=== PATIENT | male | born 1940 | race Caucasian/White ===

== ENCOUNTER 2024-09-13 10:40 | Outpatient (CLI) | payer BC, OTHER, SELFPAY ==
[2024-09-13 11:36] LABS: Hematocrit 45.4 % (40-54); Hemoglobin 14.9 g/dL (13.0-16.5); Mean Corp Hgb Conc 32.8 g/dL (32-36); Mean Corpuscular Hgb 31.2 pg (27.0-32.0); Mean Corpuscular Volume 95.2 fL (80-94); Mean Platelet Vol. 9.8 fl (6.2-12.0); Platelet Count 161 K/mm3 (150-450); RBC Distribution Width CV 14.6 % (11.6-14.6); RBC Distribution Width SD 50.6 fl (35.1-43.9); Red Blood Count 4.77 M/mm3 (4.6-6.2); White Blood Count 10.9 K/mm3 (4.4-11.0)
[2024-09-13 11:57] LABS: Anion Gap 1 (5-15); BUN 47 mg/dL (7-18); BUN/Creat Ratio 29.4 RATIO (10-20); Calcium,Total 10.9 mg/dL (8.5-10.1); Chloride 104 mmol/L (98-107); EST Glomerular Filtration Rate 44 mL/min (>60); Est Glom Filt Rate - Afr Amer 53 mL/min (>60); Glucose 103 mg/dL (74-106); Potassium 4.8 mmol/L (3.5-5.1); Sodium Level 137 mmol/L (136-145)
== END 2024-09-13 23:59 | disposition home or self-care (01) ==
LOC: LAB 11:00
PROVIDERS: PCP Family Medicine; Referring Provider Otolaryngology; Visit Provider Otolaryngology
DX: Z01.812 Encounter for preprocedural laboratory examination (principal)
CPT/HCPCS: 36415; 80048; 85027

== ENCOUNTER → 2024-09-16 | Outpatient (CLI) | payer MEDICARE, OTHER, SELFPAY ==
--- NOTE | 2024-09-16 13:19 | EKG12_ITS ---
Test Reason : PREOP Blood Pressure : / mmHG Vent. Rate : 069 BPM Atrial Rate : 069 BPM P-R Int : 136 ms QRS Dur : 080 ms QT Int : 366 ms P-R-T Axes : 084 071 092 degrees QTc Int : 392 ms Normal sinus rhythm ST abnormality, possible digitalis effect Abnormal ECG When compared with ECG of 24-APR-2000 09:33, ST no longer elevated in Anterior leads Nonspecific T wave abnormality now evident in Lateral leads Confirmed by KAVEH ARIZMENDI, THAO ([id number]), editorial project manager CARON DEWEY ([id number]) on 09/17/2024 2:12:02 PM Referred By: Eusebio Quinteros Confirmed By:THAO LINN MD
== END | disposition home or self-care (01) ==
PROVIDERS: PCP Family Medicine; Referring Provider Otolaryngology; Visit Provider Otolaryngology
DX: Z01.810 Encounter for preprocedural cardiovascular examination (principal)
CPT/HCPCS: 93005

== ENCOUNTER 2024-09-29 10:55 | Day surgery (SDC) | payer MEDICARE, SELFPAY ==
[2024-09-29] VITALS (8 sets, daily range): BP systolic 99–113; BP diastolic 44–83; PULSE 61–84; RESP 16–18; TEMP 36.1–36.7; O2SAT 93–100; BMI 21.8
[2024-09-29] MEDS: Lactated Ringers 1,000 ML 15 ML IV (11:40)
--- NOTE | 2024-09-29 11:57 | PRE.ANES_ITS ---
ASA Classification* ASA Classification ASA Classification: 4 Assessment & Plan Anesthesia* Anesthesia Assessment Anesthesia Assessment: Discussed sedation and/or anesthesia options, risks, benefits, and alternatives with patient/parents/legal guardian/POA. Questions invited. The patient/parents/legal guardian/POA seems to understand and agrees to proceed with anesthesia plan. Reviewed the physical assessment, medical history, allergy history and patient home medications list prior to surgery/procedure/anesthetic and documented any changes. Performed airway and anesthesia risk assessments. Anesthesia Type Anesthesia Type: General (Mask versus LMA.) History Source History Obtained from:: Patient and Chart Anesthesia Focused Assessment* Temperature: 97.2 F Pulse Rate: 84 Blood Pressure: 113/52 Respiratory Rate: 18 Pulse Ox: 100 Oxygen Delivery Method: Room Air Airway Assessment Mouth opens: 1 cm Mallampati Score: IV Teeth Condition: Partial (Upper and lower partials are out.) Neck Range of motion (ROM): Limited ROM (Somewhat decreased extension) Focused Labs Anesthesia Preop lab: CBC WBC 10.9 K/mm3 (4.4-11.0) 09/13/24 11:05 RBC 4.77 M/mm3 (4.6-6.2) 09/13/24 11:05 Hgb 14.9 g/dL (13.0-16.5) 09/13/24 11:05 Hct 45.4 % (40-54) 09/13/24 11:05 Plt Count 161 K/mm3 (150-450) 09/13/24 11:05 CHEMISTRY Potassium 4.8 mmol/L (3.5-5.1) 09/13/24 11:05 Sodium 137 mmol/L (136-145) 09/13/24 11:05 BUN 47 mg/dL (7-18) H 09/13/24 11:05 Creatinine 1.60 mg/dL (0.70-1.30) H 09/13/24 11:05 Glucose 103 mg/dL (74-106) 09/13/24 11:05 COAG Pre-Assessment Diagnosis/Proposed Procedure Planned Operative Procedure(s): RIGHT MYRINGOTOMY TUBE Anesthesia History Anesthesia History - 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 When Was Last Pacemaker Check QUESTION #4 FULL TEXT: You/Your Family Experience fever (hyperthermia) with Anesthesia Last Oral Intake Last Oral intake: Last Oral Intake NPO since 19:30 09/29/24 11:40 Meds taken in AM with sips of No 09/29/24 11:40 water? Meds patient instructed to take am of surgery PONV PONV - engraver ornamental design: PONV - engraver ornamental design Female No 09/25/24 11:44 HX of Motion Sickness No 09/25/24 11:44 HX of N/V After Surgery No 09/25/24 11:44 Non-Smoker Yes 09/25/24 11:44 Duration of Surgery greater No 09/25/24 11:44 than 60 minutes Number of Risk Factors 1 09/25/24 11:44 PONV Score Low Risk 09/25/24 11:44 Height & Weight Height & Weight: Anesthesia: Height & Weight Height 5 ft 9 in 09/29/24 11:40 Weight: 67 kg 09/29/24 11:40 Body Mass Index (BMI) 21.8 09/29/24 11:40 Respiratory Assessment Respiratory Assessment - engraver ornamental design: Respiratory Tract Infection Hx - engraver ornamental design Hx Respiratory Tract Infection No 09/25/24 11:44 STOP Sleep Apnea STOP Sleep Apnea - engraver ornamental design: STOP Sleep Apnea - engraver ornamental design Hx Hypertension Yes: CONTROLLED WITH MED 09/25/24 11:44 Hx Sleep Apnea No 09/25/24 11:44 CPAP BIPAP Do you snore loudly (louder No 09/25/24 11:44 than talking or can be heard Do you often feel tired/ Yes 09/25/24 11:44 fatigued/ sleepy during daytime? Has anyone observed you stop No 09/25/24 11:44 breathing during sleep? STOP Results Positive 09/25/24 11:44 QUESTION #5 FULL TEXT : Do you snore loudly (louder than talking or can be heard through closed doors)? 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 Specify any problems Hx of Preganancy in last 3 N/A 09/25/24 11:44 Months Nurse Filling Out Transfusion DSCHRIBER 09/25/24 11:44 & Questions: Date: 09/25/24 09/25/24 11:44 Time: 11:46 09/25/24 11:44 Patient unable to answer at this time (ie. confused, unrespo /Reproduction History /Reproductive History - engraver ornamental design: /Reproductive Hx- engraver ornamental design Hx Now No 09/25/24 11:44 Gestational Age (in weeks): EDC: Hx Hx Para Hx Section SAB No 09/25/24 11:44 Active Medications Active Medications: Current Medications Generic Name Dose Route Start Last Admin Trade Name Freq PRN Reason Stop Dose Admin Lactated Ringer's 1,000 mls @ 15 mls/hr 09/29/24 11:15 09/29/24 11:40 IV 10/05/24 00:34 15 mls/hr .Q48H VICKY Administration Protocol PFSH Medical History Loss of hearing Wears glasses Wears partial dentures History of steroid therapy Ambulates with cane Prostate disease History of renal disease Low iron DVT (deep venous thrombosis) Easy bruising Back pain Syncope History of hiatal hernia History of GI bleed Dietary restriction Gastric reflux Former smoker Lung cancer Leg cramps History of stress test Cardiology follow-up encounter Hypertension History of edema History of heart attack Home Medications ?Medication ?Instructions ?Recorded ?Last Taken ?Type acyclovir 200 mg capsule 200 mg PO BID 09/25/24 Unknown History alpha lipoic acid 200 mg capsule 200 mg PO DAILY 09/25/24 Unknown History aspirin 81 mg tablet,delayed 81 mg PO DAILY 09/25/24 09/14/24 History release (Adult Aspirin Regimen) bicalutamide 50 mg tablet 50 mg PO QHS 09/25/24 Unknown History bumetanide 0.5 mg tablet 0.5 mg PO DAILY 09/25/24 Unknown History calcium 600 mg capsule 600 mg PO DAILY 09/25/24 Unknown History cholecalciferol (vitamin D3) 50 50 mcg PO DAILY 09/25/24 Unknown History mcg (2,000 unit) capsule (Vitamin D3) gabapentin 300 mg capsule 300 mg PO TID 09/25/24 Unknown History ipratropium bromide 42 mcg (0.06 2 spray intranasal BID 09/25/24 Unknown History %) nasal spray leuprolide 3.75 mg intramuscular 3.75 mg IM QMONTH 09/25/24 09/09/24 History syringe kit (Lupron Depot) methadone 5 mg tablet 5 mg PO Q12H 09/25/24 Unknown History metoprolol tartrate 25 mg tablet 25 mg PO BID 09/25/24 Unknown History nystatin 100,000 unit/mL oral 5 ml PO MOWEFR 09/25/24 Unknown History suspension pantoprazole 40 mg tablet,delayed 40 mg PO DAILY 09/25/24 Unknown History release polysaccharide iron complex 150 mg 150 mg PO DAILY 09/25/24 Unknown History iron capsule (Ferrex) prednisone 20 mg tablet 40 mg PO DAILY 09/25/24 Unknown History selenium 200 mcg tablet 200 mcg PO QHS 09/25/24 Unknown History sulfamethoxazole 800 1 tab PO MOWEFR 09/25/24 Unknown History mg-trimethoprim 160 mg tablet tamsulosin 0.4 mg capsule 0.4 mg PO QHS 09/25/24 Unknown History vit I87-[id number] factor-folic 1 tab PO DAILY 09/25/24 Unknown History acid cmb#2 500 mcg-20 mg-800 mcg tablet (Intrinsi Q92-Owldgj) Allergy/AdvReac Type Severity Reaction Status Date / Time [id number] Reductase AdvReac Intermediate Other Verified 09/29/24 11:29 Inhibitor Surgical History History of cardiac catheterization History of esophagogastroduodenoscopy (EGD) Hx of colonoscopy Hx of parotidectomy History of coronary artery stent placement Hx of appendectomy Hx of heart bypass surgery Social History Smoking Status: Former smoker Review of Systems (Anesthesia) ROS Narrative System reviewed and no additional complaints, except as documented. Physical Exam HEENT HEENT Narrative: Patient has left facial droop secondary to parotid surgery September of last year 2022.
--- NOTE | 2024-09-29 13:03 | PCM.DC.SUM ---
Providers Primary Care Physician: Dr. Korey Blanco MD Reason For Visit: Myringotomy,Tubes Medications at Discharge Home Medications acyclovir 200 mg capsule 200 mg PO BID 09/25/24 alpha lipoic acid 200 mg capsule 200 mg PO DAILY 09/25/24 aspirin 81 mg tablet,delayed release (Adult Aspirin Regimen) 81 mg PO DAILY 09/25/24 bicalutamide 50 mg tablet 50 mg PO QHS 09/25/24 bumetanide 0.5 mg tablet 0.5 mg PO DAILY 09/25/24 calcium 600 mg capsule 600 mg PO DAILY 09/25/24 cholecalciferol (vitamin D3) 50 mcg (2,000 unit) capsule (Vitamin D3) 50 mcg PO DAILY 09/25/24 gabapentin 300 mg capsule 300 mg PO TID 09/25/24 ipratropium bromide 42 mcg (0.06 %) nasal spray 2 spray intranasal BID 09/25/24 leuprolide 3.75 mg intramuscular syringe kit (Lupron Depot) 3.75 mg IM QMONTH 09/25/24 methadone 5 mg tablet 5 mg PO Q12H 09/25/24 metoprolol tartrate 25 mg tablet 25 mg PO BID 09/25/24 nystatin 100,000 unit/mL oral suspension 5 ml PO MOWEFR 09/25/24 pantoprazole 40 mg tablet,delayed release 40 mg PO DAILY 09/25/24 polysaccharide iron complex 150 mg iron capsule (Ferrex) 150 mg PO DAILY 09/25/24 prednisone 20 mg tablet 40 mg PO DAILY 09/25/24 selenium 200 mcg tablet 200 mcg PO QHS 09/25/24 sulfamethoxazole 800 mg-trimethoprim 160 mg tablet 1 tab PO MOWEFR 09/25/24 tamsulosin 0.4 mg capsule 0.4 mg PO QHS 09/25/24 vit M72-[id number] factor-folic acid cmb#2 500 mcg-20 mg-800 mcg tablet (Intrinsi L90-Ulghbu) 1 tab PO DAILY 09/25/24 Weight / BMI Weight Weight: 67 kg Body Mass Index (BMI) 21.8 D/C Instructions Discharge Diet: No restrictions and Soft diet Discharge Activity: Return to Normal Activity Additional Instructions: ear drops...5 drops each ear twice a day for 2 days (3 doses) Please Follow Up With: Eusebio Quinteros MD When: 2-3 weeks Meaningful Use Info Meaningful Use Meaningful Use Diagnoses (Choose all that apply): None applicable Ischemic Stroke Statin Dosing Therapy Reference: STATIN DOSE THERAPY REFERENCE: * Patients > 75 years receive moderate or high dose statin therapy. * Patients 75 years or YOUNGER should receive HIGH intensity statin dose unless contraindicated. You will be required to document reason for non-treatment if statin daily dose does not meet guidelines. HIGH DOSE STATIN THERAPY DAILY Atorvastatin > than or = to 40 mg Rosuvastatin > than or = to 20 mg Amlodipine + Atorvastatin > than or = to 2.5/40 mg Ezetimibe + Simvastatin 10/80 mg Simvastatin 80mg Discharge Plan Admission Attending Provider: Eusebio Quinteros Primary Care Provider: Korey Blanco Instructions Print Language: Scottish Discharge Orders/Prescriptions Prescriptions: No Action ipratropium bromide 42 mcg (0.06 %) spray,non-aerosol 2 spray INTRANASAL BID nystatin 100,000 unit/mL suspension 5 ml PO MOWEFR gabapentin 300 mg capsule 300 mg PO TID tamsulosin 0.4 mg capsule 0.4 mg PO QHS selenium 200 mcg tablet 200 mcg PO QHS prednisone 20 mg tablet 40 mg PO DAILY methadone 5 mg tablet 5 mg PO Q12H calcium 600 mg capsule 600 mg PO DAILY alpha lipoic acid 200 mg capsule 200 mg PO DAILY pantoprazole 40 mg tablet,delayed release (DR/EC) 40 mg PO DAILY metoprolol tartrate 25 mg tablet 25 mg PO BID bicalutamide 50 mg tablet 50 mg PO QHS aspirin [Adult Aspirin Regimen] 81 mg tablet,delayed release (DR/EC) 81 mg PO DAILY bumetanide 0.5 mg tablet 0.5 mg PO DAILY sulfamethoxazole-trimethoprim 800-160 mg tablet 1 tab PO MOWEFR acyclovir 200 mg capsule 200 mg PO BID cholecalciferol (vitamin D3) [Vitamin D3] 50 mcg (2,000 unit) capsule 50 mcg PO DAILY Intrinsi Z55-Oeygat 500-20-800 mcg-mg-mcg tablet 1 tab PO DAILY polysaccharide iron complex [Ferrex 150] 150 mg iron capsule 150 mg PO DAILY Lupron Depot 3.75 mg syringe kit 3.75 mg IM QMONTH Referrals / Follow Up: Korey Blanco MD [Primary Care Provider] - Disposition Disposition (needs filled in before D/C Order can be placed): Home, Self Care
--- NOTE | 2024-09-29 13:05 | OP.PCM_ITS ---
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 The patient was placed in the supine position on the operating room table. The patient was given sufficient general anesthesia. The operating microscope was used throughout the entire case. A speculum was inserted into the patient's right ear. Cerumen was removed using a curette. An incision was placed in the anterior inferior quadrant of the tympanic membrane. Fluid was suctioned from the middle ear space using #5 suction. A collar button tube was placed without difficulty. Antibiotic drops were instilled into the patient's ear. The patient was then awoken. He was brought to the recovery room in stable condition. Blood loss none, replacement none. sponge, needle and instrument counts correct at the end of the procedure. Surgical Findings: serous effusion Ear Muff Assembler second hand: No Complications Complications: No
[2024-09-29] MEDS: Ciprofloxacin 0.3% 2.5ml Bottle 1 DRP (13:14)
--- NOTE | 2024-09-29 13:26 | PCM.POST.ANE ---
Anesthesia: Postop Eval I Current Vital Signs Temperature: 98.1 F Pulse Rate: 61 Blood Pressure: 106/44 Respiratory Rate: 18 Pulse Ox: 97 Assessment Airway patent: Yes Spontaneous unlabored respirations: Yes nausea: No Vomiting: No Anesthesia Complication: No Fluid Hydration Crystalloid volume administer (ml): 1,000 Total IV fluid infused: 1,000 Progress Note Anesthesia document: Postop Eval 1 completed: Yes
--- NOTE | 2024-09-29 15:27 | POSTOPAN2_ITS ---
Anesthesia Postop Eval I Sum Postop Eval Completion status Anesthesia document: Postop Eval 1 completed: Yes Anesthesia Postop Eval I Summary Anesthesia Postop Eval I Summary: Anesthesia Postop Eval I: Assessment Summary Airway patent Yes 09/29/24 13:26 ELECTRICIAN HELPER AUTOMOTIVE.CSIR Spontaneous unlabored Yes 09/29/24 13:26 ELECTRICIAN HELPER AUTOMOTIVE.CSIR respirations Mental status nausea No 09/29/24 13:26 ELECTRICIAN HELPER AUTOMOTIVE.CSIR Vomiting No 09/29/24 13:26 ELECTRICIAN HELPER AUTOMOTIVE.CSIR Anesthesia Postop Eval I: Fluid Summary Crystalloid volume administer 1,000 09/29/24 13:26 ELECTRICIAN HELPER AUTOMOTIVE.CSIR (ml) Colloids volume administered ( ml) Blood Product volume administered (ml) Total IV fluid infused 1,000 09/29/24 13:26 ELECTRICIAN HELPER AUTOMOTIVE.CSIR Anesthesia Postop Eval I: Summary Notes Anesthesia Complication No 09/29/24 13:26 ELECTRICIAN HELPER AUTOMOTIVE.CSIR Anesthesia Complication Comment: Post-operative progress note Anesthesia: Postop Eval II Evaluation Mental status: Awake and Calm Pain Level: 1 nausea: No Vomiting: No Complications Anesthesia Complication: No
--- NOTE | 2024-09-29 15:27 | PCM.POSTANE2 ---
Anesthesia Postop Eval I Sum Postop Eval Completion status Anesthesia document: Postop Eval 1 completed: Yes Anesthesia Postop Eval I Summary Anesthesia Postop Eval I Summary: Anesthesia Postop Eval I: Assessment Summary Airway patent Yes 09/29/24 13:26 EMPLOYMENT PROGRAMS ANALYST.CSIR Spontaneous unlabored Yes 09/29/24 13:26 EMPLOYMENT PROGRAMS ANALYST.CSIR respirations Mental status nausea No 09/29/24 13:26 EMPLOYMENT PROGRAMS ANALYST.CSIR Vomiting No 09/29/24 13:26 EMPLOYMENT PROGRAMS ANALYST.CSIR Anesthesia Postop Eval I: Fluid Summary Crystalloid volume administer 1,000 09/29/24 13:26 EMPLOYMENT PROGRAMS ANALYST.CSIR (ml) Colloids volume administered ( ml) Blood Product volume administered (ml) Total IV fluid infused 1,000 09/29/24 13:26 EMPLOYMENT PROGRAMS ANALYST.CSIR Anesthesia Postop Eval I: Summary Notes Anesthesia Complication No 09/29/24 13:26 EMPLOYMENT PROGRAMS ANALYST.CSIR Anesthesia Complication Comment: Post-operative progress note Anesthesia: Postop Eval II Evaluation Mental status: Awake and Calm Pain Level: 1 nausea: No Vomiting: No Complications Anesthesia Complication: No
== END 2024-09-29 15:02 | disposition home or self-care (01) ==
LOC: SDC 11:02 → AC 11:03
PROVIDERS: PCP Family Medicine; Referring Provider Otolaryngology; Visit Provider Otolaryngology
PROC: (CPT 69421; principal; 2024-09-29 12:05)
DX: H65.21 Chronic serous otitis media, right ear (principal); C07 Malignant neoplasm of parotid gland; N18.30 Chronic kidney disease, stage 3 unspecified; Z86.711 Personal history of pulmonary embolism; K21.9 Gastro-esophageal reflux disease without esophagitis; I25.2 Old myocardial infarction; N40.0 Benign prostatic hyperplasia without lower urinary tract symptoms; Z95.1 Presence of aortocoronary bypass graft; Z90.49 Acquired absence of other specified parts of digestive tract; Z95.5 Presence of coronary angioplasty implant and graft; Z87.891 Personal history of nicotine dependence; I25.10 Atherosclerotic heart disease of native coronary artery without angina pectoris; I12.9 Hypertensive chronic kidney disease with stage 1 through stage 4 chronic kidney disease, or unspecified chronic kidney disease; H90.6 Mixed conductive and sensorineural hearing loss, bilateral; B37.0 Candidal stomatitis
CPT/HCPCS: 69421; J7120; J2405

== ENCOUNTER 2024-10-20 12:35 | Observation (INO) | payer MEDICARE, SELFPAY ==
[2024-10-20 12:36] VITALS: BP 134/64; PULSE 74; RESP 16; TEMP 36.1; O2SAT 97
[2024-10-20 12:39] VITALS: BMI 20.8
--- NOTE | 2024-10-20 13:42 | EKG12_ITS ---
Test Reason : Blood Pressure : */* mmHG Vent. Rate : 61 BPM Atrial Rate : 61 BPM P-R Int : 118 ms QRS Dur : 82 ms QT Int : 424 ms P-R-T Axes : 31 56 86 degrees QTcB Int : 426 ms Normal sinus rhythm ST & & T wave abnormality Baseline artifact Abnormal ECG Confirmed by Ashutosh Beckford ([id number]), editorial project manager LILIAN CHU ([id number]) on 10/21/2024 10:43:32 AM Referred By: Carmel Berumen Confirmed By: Ashutosh Beckford
[2024-10-20 13:57] LABS: Absolute Lymphocyte Count 0.11 X10^3/uL (0.83-4.51); Absolute Neutrophil Count 8.9 X10^3/uL (2.0-7.7); Basophil# 0.06 X10^3/uL; Basophil% 0.6 % (0-1); Hemoglobin 13.2 g/dL (13.0-16.5); Lymphocyte # 0.11 X10^3/ul (0.83-4.51); Lymphocyte % 1.1 % (19-41); Mean Corp Hgb Conc 33.8 g/dL (32-36); Mean Corpuscular Hgb 32.8 pg (27.0-32.0); Mean Corpuscular Volume 96.8 fL (80-94); Mean Platelet Vol. 9.4 fl (6.2-12.0); Monocyte# 0.49 X10^3/uL; NRBC Flagged by Analyzer 0 % (0-5); Neutrophil # 8.88 X10^3/uL (2.7-7.7); Neutrophil % 90.6 % (47-70); POSITIVE DIFFERENTIAL YES; Platelet Count 157 K/mm3 (150-450); RBC Distribution Width CV 16.1 % (11.6-14.6); RBC Distribution Width SD 57.9 fl (35.1-43.9); Red Blood Count 4.03 M/mm3 (4.6-6.2); White Blood Count 9.8 K/mm3 (4.4-11.0)
[2024-10-20] MEDS: 0.9% Normal Saline (1000mL) 1,000 ML 999 ML IV (13:59)
--- NOTE | 2024-10-20 14:00 | RAD_ITS ---
INDICATION: weakness, aspiration? EXAMINATION/TECHNIQUE: X-RAY - XR Chest 1 View COMPARISON: CT dated August 12, 2024 FINDINGS: LINES/DEVICES: None. LUNGS: There is a nodular opacity within the left mid lung. There are ill-defined bibasilar opacities, more pronounced on the left. No pneumothorax. MEDIASTINUM AND CARDIOVASCULAR STRUCTURES: There are sternotomy wires in place. There is cardiomegaly. Central airways and mediastinal contour are unremarkable. BONES AND SOFT TISSUES: Unremarkable. RAD/Chest 1 View (Portable) IMPRESSION: Indeterminate nodular opacity within the left midlung, cannot exclude an underlying pulmonary nodule, consider chest CT for further evaluation. Bibasilar ill-defined opacities, more pronounced on the left may be secondary to atelectasis and/or pneumonia. Cardiomegaly. Electronically Signed: Jimena Mcbride MD at 14:32 EST ,
[2024-10-20 14:03] LABS: Bacteria 0 SEEN /hpf (None Seen); Mucous, Urine 0 SEEN /hpf (<or=2+)
[2024-10-20 14:05] LABS: Color, Urine Yellow (Yellow); Glucose, Dipstick Normal (Normal); Ketone-Dipstick Negative (Negative); Leukocyte Esterase-Dipstick 25 /ul (Negative); Nitrite-Dipstick Negative (Negative); Occult Blood-Urine 10 /ul (Negative); Protein-Dipstick 15 mg/dl (Negative); Urine Bilirubin Dipstick Negative (Negative); Urine Clarity Clear (Clear); Urine Urobilinogen 4 mg/dl (Normal)
[2024-10-20 14:11] LABS: Red Blood Cells-Urine 0-5 SEEN /hpf (0-5); Squamous Epithelial Cells - UA 0-5 SEEN /hpf (0-5); White Blood Cells 0-5 SEEN /hpf (0-5)
[2024-10-20 14:12] LABS: Anion Gap 8 (5-15); BUN 33 mg/dL (7-18); BUN/Creat Ratio 24.1 RATIO (10-20); Calcium,Total 9.6 mg/dL (8.5-10.1); Chloride 104 mmol/L (98-107); Creatinine, Serum 1.37 mg/dL (0.70-1.30); EST Glomerular Filtration Rate 52 mL/min (>60); Est Glom Filt Rate - Afr Amer 63 mL/min (>60); Estimated Creatinine Clearance 35.09 ml/min; Glucose 118 mg/dL (74-106); Magnesium 2.1 mg/dL (1.6-2.6); Potassium 4.3 mmol/L (3.5-5.1); Sodium Level 138 mmol/L (136-145)
[2024-10-20 14:35] VITALS: PULSE 68; RESP 17
--- NOTE | 2024-10-20 15:00 | ED.RN ---
mangle feeder bedside
[2024-10-20 16:00] VITALS: BP 149/73; PULSE 65; RESP 17; O2SAT 96
--- NOTE | 2024-10-20 16:18 | EDS_ITS ---
HPI <Dr. 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 He is presenting for difficulty swallowing and decreased oral intake. He has been having some lightheadedness and dizziness. Concern for dehydration. He follows with Dr. Campuzano. He did have a recent medication change of gabapentin to Cymbalta as well as prednisone to dexamethasone. He was due to have an evaluation by hospice yesterday. Family is concerned about his hydration status. He also fell last night when he was trying to eat that everything was hot even though it was actually cold. Daughter also notes that at 1 point he was trying to eat peanut butter milkshake but states it tasted spicy. He has not had a bowel movement for couple days but has been taking stool softeners. No other complaints or concerns reported this time. No fevers reported. [facility] <Dr. Carmel Berumen, DO - Last Filed: 10/21/24 12:01> [facility] Medical History Chronic pain Kidney disease Kidney stones GERD (gastroesophageal reflux disease) GI bleed Non-smoker Myocardial infarct Loss of hearing Wears glasses Wears partial dentures History of steroid therapy Ambulates with cane Prostate disease History of renal disease Low iron DVT (deep venous thrombosis) Easy bruising Back pain Syncope History of hiatal hernia History of GI bleed Dietary restriction Gastric reflux Former smoker Lung cancer Leg cramps History of stress test Cardiology follow-up encounter Hypertension History of edema History of heart attack Home Medications ?Medication ?Instructions ?Recorded ?Last Taken ?Type acyclovir 200 mg capsule 200 mg PO BID is on a large dose 09/25/24 Unknown History of predisone alpha lipoic acid 200 mg capsule 200 mg PO DAILY supplement 09/25/24 Unknown History bicalutamide 50 mg tablet 50 mg PO QHS antihormone therapry 09/25/24 Unknown History ipratropium bromide 42 mcg (0.06 2 spray intranasal BID congestion 09/25/24 Unknown History %) nasal spray leuprolide 3.75 mg intramuscular 3.75 mg IM QMONTH anti hormone for 09/25/24 09/09/24 History syringe kit (Lupron Depot) cancer methadone 5 mg tablet 5 mg PO Q12H pain 09/25/24 Unknown History metoprolol tartrate 25 mg tablet 25 mg PO BID hr 09/25/24 Unknown History nystatin 100,000 unit/mL oral 5 ml PO MOWEFR thrush 09/25/24 Unknown History suspension pantoprazole 40 mg tablet,delayed 40 mg PO DAILY gerd 09/25/24 Unknown History release polysaccharide iron complex 150 mg 150 mg PO DAILY iron 09/25/24 Unknown History iron capsule (Ferrex) sulfamethoxazole 800 1 tab PO MOWEFR infection 09/25/24 Unknown History mg-trimethoprim 160 mg tablet tamsulosin 0.4 mg capsule 0.4 mg PO QHS enlarged prostate 09/25/24 Unknown History vit X00-tegpilftb factor-folic 1 tab PO DAILY supplement 09/25/24 Unknown His tory acid cmb#2 500 mcg-20 mg-800 mcg tablet (Intrinsi H29-Gncasi) dexamethasone 4 mg tablet 4 mg PO Q8 steriod 10/20/24 Unknown History duloxetine 60 mg capsule,delayed 60 mg PO QHS pain 10/20/24 Unknown History release (Cymbalta) Allergy/AdvReac Type Severity Reaction Status Date / Time [id number] Reductase AdvReac Intermediate Other Verified 10/20/24 12:36 Inhibitor Family History Mother Heart disease Hypertension Heart failure Father Heart disease Hypertension CAD (coronary artery disease) Myocardial infarction Diabetes Surgical History History of cardiac catheterization History of esophagogastroduodenoscopy (EGD) Hx of colonoscopy Hx of parotidectomy History of coronary artery stent placement Hx of appendectomy Hx of heart bypass surgery Social History household members: none Smoking Status: Former smoker alcohol intake: never substance use type: does not use ROS <Dr. Carmel Berumen, DO - Last Filed: 10/21/24 12:01> ROS ED Constitutional Constitutional ED: Denies chills or fever(s) ENT ENT ED: Reports other Details: Difficulty swallowing, left facial swelling associated with his cancer Cardiovascular Cardiovascular: Denies chest pain Respiratory/Chest Respiratory/Chest: Denies cough or dyspnea Gastrointestinal Gastrointestinal: Denies abdominal pain or vomiting Musculoskeletal Musculoskeletal: Denies arthralgias or myalgias Integumentary Denies rash Neurologic Neurologic: Reports weakness EXAM <Dr. Carmel Berumen DO - Last Filed: 10/21/24 12:01> Physical Exam Const Vital Signs: 10/20/24 12:36 10/20/24 13:53 10/20/24 14:35 Temperature 96.9 F L Temperature Source Temporal Pulse Rate 74 68 Respiratory Rate 16 17 Respiratory Pattern Normal Blood Pressure 134/64 H Blood Pressure Mean 87 Pulse Ox 97 Oxygen Delivery Method Room Air 10/20/24 16:00 Temperature Temperature Source Pulse Rate 65 Respiratory Rate 17 Respiratory Pattern Blood Pressure 149/73 H Blood Pressure Mean 98 Pulse Ox 96 Oxygen Delivery Method Constitutional Narrative: Chronically ill-appearing HEENT Reports dry mucous membranes HEENT Narrative: Deformity of the left jaw consistent with his cancer Mouth ED: Yes dry mucous membranes Mouth: dry mucous membranes Eyes Eyes Narrative: eye patch over the left eye Neck supple Chest Wall inspection of chest normal Resp normal respiratory effort and clear to auscultation bilaterally Cardio regular rate and regular rhythm GI normal to inspection, nondistended, normoactive bowel sounds and non-tender Extremity Extremity Narrative: Chronic. Edema of the lower extremities. General Extremety ED: Yes edema General Extremity: edema Neuro Neuro Narrative: No focal deficits appreciated Sensorium / Orientation: alert Motor Exam: general weakness Psych mental status grossly normal Skin Skin Narrative: A chronic appearing wounds to the left lower extremity and chronic appearing erythema. Open wound of the left anterior mid mota as well as a small open wound of the medial calf or distally. They do not appear infected. <Dr. Macho Mallory MD - Last Filed: 10/20/24 18:34> Physical Exam Const Vital Signs: 10/20/24 12:36 10/20/24 13:53 10/20/24 14:35 Temperature 96.9 F L Temperature Source Temporal Pulse Rate 74 68 Respiratory Rate 16 17 Respiratory Pattern Normal Blood Pressure 134/64 H Blood Pressure Mean 87 Pulse Ox 97 Oxygen Delivery Method Room Air 10/20/24 16:00 Temperature Temperature Source Pulse Rate 65 Respiratory Rate 17 Respiratory Pattern Blood Pressure 149/73 H Blood Pressure Mean 98 Pulse Ox 96 Oxygen Delivery Method [facility] <Dr. Carmel Berumen DO - Last Filed: 10/21/24 12:01> MDM MDM Narrative Medical decision making narrative: Patient evaluated for worsening weakness, difficulty swallowing as a consequence of metastatic parotid cancer. Patient is hemodynamically stable the emergency room. Will obtain basic labs, give IV fluids and obtain hospice evaluation. Lab work shows a mild ovation of his creatinine is mildly downtrending. CBC largely normal. Urinalysis not consistent with infection. Two-view chest x-ray shows ill-defined opacities and I suspect this is his metastatic disease and lower suspicion for aspiration. Especially does not have a leukocytosis, acute hypoxia or acute cough. Patient be signed out to oncoming physician pending hospice evaluation for final disposition. Seems like at this time patient either should ensure hospice or if he wants to be more aggressive consider admission for PEG tube. Lab Data Attestation: I reviewed the patient's lab results. Labs: Laboratory Results - last 24 hr 10/20/24 10/20/24 13:45 13:58 WBC 9.8 RBC 4.03 L Hgb 13.2 Hct 39.0 L MCV 96.8 H MCH 32.8 H MCHC 33.8 RDW Std Deviation 57.9 H RDW Coeff of Teo 16.1 H Plt Count 157 MPV 9.4 Immature Gran % (Auto) 2.700 H Neut % (Auto) 90.6 H Lymph % (Auto) 1.1 L [place] % (Auto) 5.0 Eos % (Auto) 0.0 Baso % (Auto) 0.6 Absolute Neuts (auto) 8.9 H Absolute Lymphs (auto) 0.11 L Nucleated RBC % 0 Sodium 138 Potassium 4.3 Chloride 104 Carbon Dioxide 26.0 Anion Gap 8 BUN 33 H Creatinine 1.37 H Estim Creat Clear Calc 35.09 Est GFR (MDRD) Af Amer 63 Est GFR (MDRD) Non-Af 52 L BUN/Creatinine Ratio 24.1 H Glucose 118 H Calcium 9.6 Phosphorus 2.0 L Magnesium 2.1 Procalcitonin 0.10 H Urine Color Yellow Urine Clarity Clear Urine pH 7.0 Ur Specific [place] 1.010 Urine Protein 15 H Urine Glucose (UA) Normal Urine Ketones Negative Urine Occult Blood 10 H Urine Nitrite Negative Urine Bilirubin Negative Urine Urobilinogen 4 H Ur Leukocyte Esterase 25 H Urine RBC 0-5 SEEN Urine WBC 0-5 SEEN Ur Squamous Epith Cells 0-5 SEEN Urine Bacteria 0 SEEN Urine Mucus 0 SEEN Radiography Diagnostic Testing: Clinical Impression(s) from Imaging Studies Chest X-Ray 10/20/24 14:00 IMPRESSION: Indeterminate nodular opacity within the left midlung, cannot exclude an underlying pulmonary nodule, consider chest CT for further evaluation. Bibasilar ill-defined opacities, more pronounced on the left may be secondary to atelectasis and/or pneumonia. Cardiomegaly. Electronically Signed: Jimena Mcbride MD at 14:32 EST , Rhythm Strip Rhythm Strip: Sinus Rhythm Rate: 61 Ectopy: None EKG Initial EKG: Attestation: I personally reviewed and interpreted this EKG as follows: Interpretation: Sinus Rhythm Comments: Normal sinus rhythm rate of 61 bpm Normal axis Normal intervals Normal ST segments Management Discussion w/another healthcare provider: Other (Hospice ) <Dr. Macho Mallory MD - Last Filed: 10/20/24 18:34> [facility] Lab Data Labs: Laboratory Results - last 24 hr 10/20/24 10/20/24 13:45 13:58 WBC 9.8 RBC 4.03 L Hgb 13.2 Hct 39.0 L MCV 96.8 H MCH 32.8 H MCHC 33.8 RDW Std Deviation 57.9 H RDW Coeff of Teo 16.1 H Plt Count 157 MPV 9.4 Immature Gran % (Auto) 2.700 H Neut % (Auto) 90.6 H Lymph % (Auto) 1.1 L [place] % (Auto) 5.0 Eos % (Auto) 0.0 Baso % (Auto) 0.6 Absolute Neuts (auto) 8.9 H Absolute Lymphs (auto) 0.11 L Nucleated RBC % 0 Sodium 138 Potassium 4.3 Chloride 104 Carbon Dioxide 26.0 Anion Gap 8 BUN 33 H Creatinine 1.37 H Estim Creat Clear Calc 35.09 Est GFR (MDRD) Af Amer 63 Est GFR (MDRD) Non-Af 52 L BUN/Creatinine Ratio 24.1 H Glucose 118 H Calcium 9.6 Phosphorus 2.0 L Magnesium 2.1 Procalcitonin 0.10 H Urine Color Yellow Urine Clarity Clear Urine pH 7.0 Ur Specific [place] 1.010 Urine Protein 15 H Urine Glucose (UA) Normal Urine Ketones Negative Urine Occult Blood 10 H Urine Nitrite Negative Urine Bilirubin Negative Urine Urobilinogen 4 H Ur Leukocyte Esterase 25 H Urine RBC 0-5 SEEN Urine WBC 0-5 SEEN Ur Squamous Epith Cells 0-5 SEEN Urine Bacteria 0 SEEN Urine Mucus 0 SEEN Radiography Diagnostic Testing: Clinical Impression(s) from Imaging Studies Chest X-Ray 10/20/24 14:00 IMPRESSION: Indeterminate nodular opacity within the left midlung, cannot exclude an underlying pulmonary nodule, consider chest CT for further evaluation. Bibasilar ill-defined opacities, more pronounced on the left may be secondary to atelectasis and/or pneumonia. Cardiomegaly. Electronically Signed: Jimena Mcbride MD at 14:32 EST Reading Location ID and State: [facility] / [place] Tel , Service support , Management Discussion w/another healthcare provider: Hospitalist Treatment and Re-Evaluation Comments:: Patient checked out to me. After discussing with hospice, patient and family decided that they are not going to sign up for hospice right now, went to continue with palliative treatment, and would like to be admitted for evaluation for a PEG feeding tube. It took him 10 minutes to attempt swallowing a mouthful of water and he was basically not able. Discussed with hospitalist who is in agreement. Discharge Plan Dx/Rx/DC Orders Clinical Impression: Generalized muscle weakness, Dysphagia, Cancer of parotid gland Disposition Disposition: Acute Care Hospital [facility] Discharge Date/Time: 10/20/24 18:45
--- NOTE | 2024-10-20 17:16 | ED.RN ---
Hospice nurse states patient does not want to admit to hospice services at this time due to wanting to continue palliative radiation, Dr. Mallory notified. Patient did state that he would like to be admitted for PEG placement.
--- NOTE | 2024-10-20 17:52 | PCM.HP.STD ---
HPI - General General Date of Admission: 10/20/24 Date of Service: 10/20/24 Chief Complaint: Fatigue, weakness, poor intake. 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 Patient does have unfortunately from previous surgery left-sided significant facial droop and is unable to even close his eye and wears a patch over it because of nerve damage. Workup in the ED included T96.9, heart rate 74, BP 134/64, respiratory rate 16, 97% room air, CBC with WBC 9.8, hemoglobin 13.2, MCV 96.8, platelet 157 with left shift and lymphopenia, BMP BUN/: 33/1.37, GFR 52, glucose 118, magnesium 2.1, urinalysis not marked appearing, chest x-ray with indeterminate nodular opacity within the left midlung with inability to exclude pulmonary nodule, bibasilar ill-defined opacities more pronounced on the left possibly atelectasis and/or pneumonia, cardiomegaly. In the ED patient history of 1 L normal saline. [facility] Medical History Chronic pain Kidney disease Kidney stones GERD (gastroesophageal reflux disease) GI bleed Non-smoker Myocardial infarct Loss of hearing Wears glasses Wears partial dentures History of steroid therapy Ambulates with cane Prostate disease History of renal disease Low iron DVT (deep venous thrombosis) Easy bruising Back pain Syncope History of hiatal hernia History of GI bleed Dietary restriction Gastric reflux Former smoker Lung cancer Leg cramps History of stress test Cardiology follow-up encounter Hypertension History of edema History of heart attack Home Medications ?Medication ?Instructions ?Recorded ?Last Taken ?Type acyclovir 200 mg capsule 200 mg PO BID 09/25/24 Unknown History alpha lipoic acid 200 mg capsule 200 mg PO DAILY 09/25/24 Unknown History bicalutamide 50 mg tablet 50 mg PO QHS 09/25/24 Unknown History ipratropium bromide 42 mcg (0.06 2 spray intranasal BID 09/25/24 Unknown History %) nasal spray leuprolide 3.75 mg intramuscular 3.75 mg IM QMONTH 09/25/24 09/09/24 History syringe kit (Lupron Depot) methadone 5 mg tablet 5 mg PO Q12H 09/25/24 Unknown History metoprolol tartrate 25 mg tablet 25 mg PO BID 09/25/24 Unknown History nystatin 100,000 unit/mL oral 5 ml PO MOWEFR 09/25/24 Unknown History suspension pantoprazole 40 mg tablet,delayed 40 mg PO DAILY 09/25/24 Unknown History release polysaccharide iron complex 150 mg 150 mg PO DAILY 09/25/24 Unknown History iron capsule (Ferrex) sulfamethoxazole 800 1 tab PO MOWEFR 09/25/24 Unknown History mg-trimethoprim 160 mg tablet tamsulosin 0.4 mg capsule 0.4 mg PO QHS 09/25/24 Unknown History vit K57-qzanngoqy factor-folic 1 tab PO DAILY 09/25/24 Unknown History acid cmb#2 500 mcg-20 mg-800 mcg tablet (Intrinsi H98-[id number]) dexamethasone 4 mg tablet 4 mg PO Q8 steriod 10/20/24 Unknown History duloxetine 60 mg capsule,delayed 60 mg PO QHS pain 10/20/24 Unknown History release (Cymbalta) Allergy/AdvReac Type Severity Reaction Status Date / Time Oaxgxxi-FNO-RpC Reductase AdvReac Intermediate Other Verified 10/20/24 12:36 Inhibitor Family History (Updated 10/20/24 @ 18:[address] Delaney Ramos MD) Mother Heart disease Hypertension Heart failure Father Heart disease Hypertension CAD (coronary artery disease) Myocardial infarction Diabetes Surgical History History of cardiac catheterization History of esophagogastroduodenoscopy (EGD) Hx of colonoscopy Hx of parotidectomy History of coronary artery stent placement Hx of appendectomy Hx of heart bypass surgery Social History (Updated 10/20/24 @ 18:[address] Delaney Ramos MD) household members: none Smoking Status: Former smoker alcohol intake: never substance use type: does not use ROS ROS Narrative Admission Review of Systems: CONSTITUTIONAL: No weight loss, fever, chills, + weakness or fatigue. HEENT: + Chronic left-sided facial droop with significant issues managing secretions and oral intake, left eye unable to be closed because of nerve damage. Eyes: No visual loss, blurred vision, double vision or yellow sclerae. Ears, Nose, Throat: No hearing loss, sneezing, congestion, runny nose or sore throat. SKIN: No rash or itching, lesions except + significant bilateral lower extremity venous stasis skin changes, pitting edema, left anterior and medial distal leg with chronic stasis wounds. CARDIOVASCULAR: No chest pain, chest pressure or chest discomfort, palpitations, edema, orthopnea, syncopal events. RESPIRATORY: No shortness of breath, cough or sputum, wheezing, hemoptysis. GASTROINTESTINAL: + Anorexia, significant throat discomfort, avoidance of oral intake because of discomfort, difficulty swallowing. No nausea, emesis, abdominal pain, diarrhea, melena, BRBPR. GENITOURINARY: No dysuria, frequency, urgency or retention. NEUROLOGICAL: + Significant left sided facial chronic droop with significant issues managing secretions/oral intake, left eye unable to be closed because of previous nerve damage. No headache, dizziness, syncope, paralysis, ataxia, change in bowel or bladder control, seizure. MUSCULOSKELETAL: + muscle, back pain, joint pain or stiffness. HEMATOLOGIC: No anemia, bleeding or bruising. LYMPHATICS: No enlarged nodes. No history of splenectomy. PSYCHIATRIC: No history of depression or anxiety. ENDOCRINOLOGIC: No reports of sweating, cold or heat intolerance. No polyuria or polydipsia. ALLERGIES: No history of asthma, hives, eczema or rhinitis. Vital Signs Vital Signs Vital Signs: 10/20/24 12:36 10/20/24 13:53 10/20/24 14:35 Temperature 96.9 F L Temperature Source Temporal Pulse Rate 74 68 Respiratory Rate 16 17 Respiratory Pattern Normal Blood Pressure 134/64 H Blood Pressure Mean 87 Pulse Ox 97 Oxygen Delivery Method Room Air 10/20/24 16:00 Temperature Temperature Source Pulse Rate 65 Respiratory Rate 17 Respiratory Pattern Blood Pressure 149/73 H Blood Pressure Mean 98 Pulse Ox 96 Oxygen Delivery Method Weight Weight: 141 lb 5.061 oz Body Mass Index (BMI) 20.8 Physical Exam Narrative Physical Examination: General: Awake, alert, oriented x 3 and cooperative, seated upright in the ED bed, fatigued, no acute distress, ongoing chronic dysarthria primarily associated with issues secondary to nerve damage to the left side of the face during surgery. Skin: Normal color, normal turgor, no icterus, no cyanosis except occasional stage ecchymoses as well as significant bilateral lower extremity venous stasis skin changes, lymphedema, left lower leg with medial and anterior mota stasis wound with no marked drainage or periwound erythema. HEENT: AT/NC, EOM R eye intact, PRRLA, dry MM, no carotid bruits or JVD noted, oral thrush evident, chronic left-sided facial droop, unable to close left eye with patch in place. Lungs: Diminished, greater bases, decreased effort, no rales, ronchi or wheezing. Heart: Regular rate and rhythm; no gallop, rub audible. Abdomen: Soft, NTTP, ND, hyperactive BS, no appreciated HSM. Extremities: No cyanosis, no clubbing, see skin, significant pedal to above the knee 3+ pitting edema. Neurological: Patient awake, alert, oriented as noted, cognitive function intact; right pupil reactive light and accommodation, cranial nerves difficult assessment given chronic left-sided facial droop secondary to nerve damage otherwise intact, moving extremities, strength severely globally decreased. Psychiatric: Affect appears flat, fatigued, no acute evidence of depressive or anxiety feelings. Results Lab / Micro Data 10/20/24 13:45 10/20/24 13:45 Labs: Laboratory Results - last 24 hr 10/20/24 13:45: WBC 9.8, RBC 4.03 L, Hgb 13.2, Hct 39.0 L, MCV 96.8 H, MCH 32.8 H, MCHC 33.8, RDW Std Deviation 57.9 H, RDW Coeff of Teo 16.1 H, Plt Count 157, MPV 9.4, Immature Gran % (Auto) 2.700 H, Neut % (Auto) 90.6 H, Lymph % (Auto) 1.1 L, [place] % (Auto) 5.0, Eos % (Auto) 0.0, Baso % (Auto) 0.6, Absolute Neuts (auto) 8.9 H, Absolute Lymphs (auto) 0.11 L, Nucleated RBC % 0, Sodium 138, Potassium 4.3, Chloride 104, Carbon Dioxide 26.0, Anion Gap 8, BUN 33 H, Creatinine 1.37 H, Estim Creat Clear Calc 35.09, Est GFR (MDRD) Af Amer 63, Est GFR (MDRD) Non-Af 52 L, BUN/Creatinine Ratio 24.1 H, Glucose 118 H, Calcium 9.6, Magnesium 2.1 10/20/24 13:58: Urine Color Yellow, Urine Clarity Clear, Urine pH 7.0, Ur Specific [place] 1.010, Urine Protein 15 H, Urine Glucose (UA) Normal, Urine Ketones Negative, Urine Occult Blood 10 H, Urine Nitrite Negative, Urine Bilirubin Negative, Urine Urobilinogen 4 H, Ur Leukocyte Esterase 25 H, Urine RBC 0-5 SEEN, Urine WBC 0-5 SEEN, Ur Squamous Epith Cells 0-5 SEEN, Urine Bacteria 0 SEEN, Urine Mucus 0 SEEN Rhythm Strip Rhythm Strip: Sinus Rhythm Rate: 61 Ectopy: None Imaging Radiology Impression Chest X-Ray 10/20/24 14:00 IMPRESSION: Indeterminate nodular opacity within the left midlung, cannot exclude an underlying pulmonary nodule, consider chest CT for further evaluation. Bibasilar ill-defined opacities, more pronounced on the left may be secondary to atelectasis and/or pneumonia. Cardiomegaly. 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 #1. Significant fatigue, malaise, adult failure to thrive, multifactorial but primarily secondary to underlying parotid cancer with significant metastatic disease with recent initiation of palliative radiation with poor oral intake, dehydration: Will admit to medical surgical floor, will maintain on fall precautions as well as aspiration precautions, will continue evaluation of electrolytes with supplementation as needed, will continue hydration and pain management, will request PT/OT/ST/case management consultation for discharge planning. #2. Parotid Cancer with significant metastatic disease: Unclear specifics of underlying cancers unfortunately no records in the system, metastatic disease reportedly in various locations including the base of the skull with recent initiation of palliative radiation 10/20/24 AM, magnesium 2.1, phosphorus will also be requested, given concerns for difficulty with oral intake especially with now start of radiation will request ST evaluation, will have BMX solution, transition to IV PPI in the interim, start with soft mechanical foods/liquids pending speech therapy evaluation. Given inability for unsafe oral intake and pain general surgery will be consulted for consideration of PEG tube placement. #3. Indeterminant pulmonary nodular opacity left midlung, bibasilar ill-defined opacities more pronounced on left, questionable atelectasis versus pneumonia MORE SUSPECTED secondary to his underlying metastatic cancer to the lungs per discussion with daughter: Patient weak and debilitated, no marked WBC elevation or left shift and from discussions does have a left sided lung cancer and metastatic disease in the lungs. To be cautious however will obtain procalcitonin, PRN albuterol, encourage HOB, IS. Speech therapy consulted and evaluation pending. #4. Chronic Kidney Disease Stage III unclear subtype per GFR trending: Admission BUN/Cr 33/1.37, GFR 52, baseline renal function previously 1.60 09/13/2020, repeat BMP in AM. #5. Hypertension: Continue home regimen including bumetanide cautiously with hold as needed, metoprolol, PRN hydralazine. #6. Chronic pain regimen: To avoid any withdrawal will very cautiously continue patient home low-dose twice daily methadone regimen as well as gabapentin home regimen, maintain on fall precaution, encourage frequent positional changes, PT/OT/case management consult for discharge planning. #7. Chronic iron-deficiency: Noted history, admission hemoglobin 13.2, MCV 96.8 similar to previous, will continue iron supplementation, encourage continued outpatient follow-up and assessment as previously arranged. #8. CAD: Status post PCI and CABG, patient has not been on aspirin or Plavix of note for quite some time now per discussion with patient family. Will continue to hold baby aspirin which is the only regimen currently listed for potential PEG tube placement, resume once cleared following surgery, continue Coreg, lisinopril, statin therapy. #9. GERD with history GI bleed: Given above noted complaints will maintain on IV PPI. #10. Former tobacco use: Encourage continued tobacco cessation. #11. BPH without obstructive pathology: We will continue patient home Flomax regimen. #12. History of VTE: Noted history of DVT, per current list does not appear to be chronically anticoagulated but clarified to be certain. #13. DVT prophylaxis: SCDs given possible PEG tube need. #14. CODE status: Patient MAGDA is his daughter who is present and living will is currently in place. Discussed CODE status at length including difference between FULL code, DNR-CCA and DNR-CC status. Following discussions about the differences in these status, requested DNR-CC although they are amenable to PEG tube placement. He is currently having palliative radiation and is working with palliative care. There has been some discussion about hospice transition but they are still undergoing the palliative treatments and would like to have a PEG tube placed. Advanced Care Planning Face to Face Time: 16 minutes. Charges/Coding Visit Charges Inpatient E&M: 80474 Init Hosp L3 Procedures Hospitalists Procedures: 00948 Advncd Care Plan 30 Min
[2024-10-20 18:00] VITALS: BP 141/66; PULSE 56; RESP 13; O2SAT 96
[2024-10-20 18:44] VITALS: BP 141/66; PULSE 56; RESP 13; TEMP 36.1; O2SAT 96
[2024-10-20 18:54] VITALS: BMI 20.9
[2024-10-20] MEDS: 0.9% Normal Saline (1000mL) 1,000 ML 100 ML IV (20:13)
[2024-10-20] MEDS: Pantoprazole Sodium 40 MG in 0.9% Normal Saline (100mL MB+) 100 ML 330 MG IV (20:13)
[2024-10-20] MEDS: Ipratropium Bromide 0.06% NASAL SPRAY 2 SPRAY NASAL (20:15)
[2024-10-20] MEDS: Menthol/Lanolin/Calamine/Znox 113 GM Tube 1 APPLIC TOPICAL (20:21)
[2024-10-20] MEDS: DULoxetine Hcl 60 MG Capsule PO (20:21)
[2024-10-20 20:22] VITALS: PULSE 67
[2024-10-20] MEDS: dexAMETHasone 4 MG Tablet PO (20:22)
[2024-10-20] MEDS: NYSTATIN 500,000 UNIT/5 ML UDC 500000 UNIT PO (20:22)
[2024-10-20] MEDS: Tamsulosin HCl 0.4 MG Capsule PO (20:22)
[2024-10-20] MEDS: Gabapentin 300 MG Capsule PO (20:22)
[2024-10-20] MEDS: Metoprolol Tartrate 25 MG Tablet PO (20:22)
[2024-10-20] MEDS: Acyclovir 200 MG Capsule PO (20:23)
[2024-10-21] VITALS (9 sets, daily range): BP systolic 116–144; BP diastolic 64–73; PULSE 55–66; RESP 16–18; TEMP 35.8–36.6; O2SAT 96–100; BMI 21.4
--- NOTE | 2024-10-21 05:35 | EKG12_ITS ---
Test Reason : PRE OP Blood Pressure : */* mmHG Vent. Rate : 55 BPM Atrial Rate : 55 BPM P-R Int : 130 ms QRS Dur : 78 ms QT Int : 464 ms P-R-T Axes : 72 65 79 degrees QTcB Int : 443 ms Sinus bradycardia Nonspecific ST and T wave abnormality Abnormal ECG When compared with ECG of 20-Oct-2024 13:58, MANUAL COMPARISON REQUIRED DATA IS UNCONFIRMED Baseline artifact Confirmed by Ashutosh Beckford ([id number]), movie editor LILIAN CHU ([id number]) on 10/21/2024 1:06:35 PM Referred By: Carmel Berumen Confirmed By: Ashutosh Beckford
[2024-10-21 06:59] LABS: Absolute Lymphocyte Count 0.14 X10^3/uL (0.83-4.51); Absolute Neutrophil Count 6.9 X10^3/uL (2.0-7.7); Basophil# 0.04 X10^3/uL; Basophil% 0.5 % (0-1); Hematocrit 33.9 % (40-54); Hemoglobin 11.2 g/dL (13.0-16.5); Lymphocyte # 0.14 X10^3/ul (0.83-4.51); Lymphocyte % 1.8 % (19-41); Mean Corpuscular Hgb 32.4 pg (27.0-32.0); Mean Platelet Vol. 9.8 fl (6.2-12.0); Monocyte# 0.53 X10^3/uL; Monocyte% 6.7 % (0-10); NRBC Flagged by Analyzer 0 % (0-5); Neutrophil % 87.6 % (47-70); POSITIVE DIFFERENTIAL YES; Platelet Count 144 K/mm3 (150-450); RBC Distribution Width CV 16.2 % (11.6-14.6); RBC Distribution Width SD 58.1 fl (35.1-43.9); Red Blood Count 3.46 M/mm3 (4.6-6.2); White Blood Count 7.9 K/mm3 (4.4-11.0)
[2024-10-21 07:46] LABS: ALB/GLOB Ratio 0.9 RATIO (0.9-2.4); AST(SGOT) 19 U/L (15-37); Alanine Aminotransfer ALT/SGPT 24 U/L (16-61); Alanine Aminotransfer ALT/SGPT 25 U/L (16-61); Albumin, Serum 2.4 g/dL (3.2-5.0); Alkaline Phosphatase 60 U/L (45-117); Alkaline Phosphatase 62 U/L (45-117); Anion Gap 5 (5-15); BUN 25 mg/dL (7-18); BUN/Creat Ratio 27.2 RATIO (10-20); Bilirubin, Direct 0.24 mg/dL (0.00-0.30); Calcium,Total 8.4 mg/dL (8.5-10.1); Chloride 110 mmol/L (98-107); Creatinine, Serum 0.92 mg/dL (0.70-1.30); EST Glomerular Filtration Rate 83 mL/min (>60); Est Glom Filt Rate - Afr Amer 100 mL/min (>60); Estimated Creatinine Clearance 53.56 ml/min; Globulin 2.7 g/dL (2.2-4.2); Globulin 2.8 g/dL (2.2-4.2); Glucose 95 mg/dL (74-106); Potassium 4.1 mmol/L (3.5-5.1); Protein, Total 5.1 g/dL (6.4-8.2); Protein, Total 5.2 g/dL (6.4-8.2); Sodium Level 138 mmol/L (136-145)
[2024-10-21 08:12] LABS: International Normalized Ratio 1.1; Partial Thromboplast Time 23.3 Seconds (24.1-36.2)
--- NOTE | 2024-10-21 08:23 | EX.PCM.CON.S ---
Assessment & Plan Assessment/Plan (1) Adult failure to thrive: (2) Malnutrition: PLAN: Plan I have discussed the above with the patient and patient's daughter. I have offered the patient esophagogastroduodenoscopy for PEG tube placement I have explained the risks/benefits of the procedure and described the procedure. I have discussed the risks with the patient, including but not limited to: infection, bleeding, perforation of the GI tract requiring emergency surgery, inability to complete the procedure, injury to any internal organs, complications of anesthesia, etc. - the patient understands and agrees to proceed. I have answered all the patient's questions to the patient's satisfaction and the patient has no further questions. Ermelinda Toledo M.D. Pager: [phone] [facility] [address] [place] [address], [address] [place] [address] Office: [phone] HPI Consult Data Date of Consult: 10/21/24 HPI Narrative Reason for Consultation: PEG tube placement HPI Narrative: MARV ZARATE, is a 84 M who presents to the ER due to failure to thrive patient does have metastatic parotid cancer. Patient has been pur?ed food for about the last year since his surgery in late 2022 which she did have a complication thus he has a left-sided facial droop. Patient's daughter states his swallowing seems to be more affected question due to the mets in the last 6 to 8 weeks. They are interested in having PEG tube placed. [facility] Medical History Chronic pain Kidney disease Kidney stones GERD (gastroesophageal reflux disease) GI bleed Non-smoker Myocardial infarct Loss of hearing Wears glasses Wears partial dentures History of steroid therapy Ambulates with cane Prostate disease History of renal disease Low iron DVT (deep venous thrombosis) Easy bruising Back pain Syncope History of hiatal hernia History of GI bleed Dietary restriction Gastric reflux Former smoker Lung cancer Leg cramps History of stress test Cardiology follow-up encounter Hypertension History of edema History of heart attack Home Medications ?Medication ?Instructions ?Recorded ?Last Taken ?Type acyclovir 200 mg capsule 200 mg PO BID is on a large dose 09/25/24 Unknown History of predisone alpha lipoic acid 200 mg capsule 200 mg PO DAILY supplement 09/25/24 Unknown History bicalutamide 50 mg tablet 50 mg PO QHS antihormone therapry 09/25/24 Unknown History ipratropium bromide 42 mcg (0.06 2 spray intranasal BID congestion 09/25/24 Unknown History %) nasal spray leuprolide 3.75 mg intramuscular 3.75 mg IM QMONTH anti hormone for 09/25/24 09/09/24 History syringe kit (Lupron Depot) cancer methadone 5 mg tablet 5 mg PO Q12H pain 09/25/24 Unknown History metoprolol tartrate 25 mg tablet 25 mg PO BID hr 09/25/24 Unknown History nystatin 100,000 unit/mL oral 5 ml PO MOWEFR thrush 09/25/24 Unknown History suspension pantoprazole 40 mg tablet,delayed 40 mg PO DAILY gerd 09/25/24 Unknown History release polysaccharide iron complex 150 mg 150 mg PO DAILY iron 09/25/24 Unknown History iron capsule (Ferrex) sulfamethoxazole 800 1 tab PO MOWEFR infection 09/25/24 Unknown History mg-trimethoprim 160 mg tablet tamsulosin 0.4 mg capsule 0.4 mg PO QHS enlarged prostate 09/25/24 Unknown History vit B27-njahfiskp factor-folic 1 tab PO DAILY supplement 09/25/24 Unknown History acid cmb#2 500 mcg-20 mg-800 mcg tablet (Intrinsi H02-[id number]) dexamethasone 4 mg tablet 4 mg PO Q8 steriod 10/20/24 Unknown History duloxetine 60 mg capsule,delayed 60 mg PO QHS pain 10/20/24 Unknown History release (Cymbalta) Allergy/AdvReac Type Severity Reaction Status Date / Time Mfsofuf-JUH-QiH Reductase AdvReac Intermediate Other Verified 10/20/24 12:36 Inhibitor Family History (Updated 10/20/24 @ 18:[address] Delaney Ramos MD) Mother Heart disease Hypertension Heart failure Father Heart disease Hypertension CAD (coronary artery disease) Myocardial infarction Diabetes Surgical History History of cardiac catheterization History of esophagogastroduodenoscopy (EGD) Hx of colonoscopy Hx of parotidectomy History of coronary artery stent placement Hx of appendectomy Hx of heart bypass surgery Social History (Updated 10/20/24 @ 18:[address] Delaney Ramos MD) household members: none Smoking Status: Former smoker alcohol intake: never substance use type: does not use ROS Constitutional Constitutional: Reports weight loss ENT HEENT: Reports dysphagia Cardiovascular Cardiovascular: Denies chest pain Respiratory/Chest Respiratory/Chest: Denies cough Gastrointestinal Gastrointestinal: Denies abdominal pain, nausea or vomiting Musculoskeletal Musculoskeletal: Denies joint swelling Integumentary Integumentary: Denies jaundice Neurologic Neurologic: Reports numbness and weakness Psychiatric Psychiatric: Denies anxiety Endocrine Endocrinology: Denies palpitations Hematologic/Lymphatic Hematologic/Lymphatic: Denies easy bleeding Physical Exam Const alert, oriented x3 and no apparent distress General Appearance: frail Nutritional Appearance: underweight HEENT HEENT Narrative: left sided facial droop from complication of surgery last year Resp normal respiratory effort Cardio regular rate GI soft to palpation and non-tender; Negative for non-distended Palpation: Negative for guarding Extremity General Extremity: edema bilateral (left is wrapped) Skin no jaundice Neuro CN's II-XII intact bilaterally Psych mental status grossly normal Lab / Micro Data 10/21/24 05:57 10/21/24 05:57 Labs: Laboratory Results - last 24 hr 10/20/24 13:45: WBC 9.8, RBC 4.03 L, Hgb 13.2, Hct 39.0 L, MCV 96.8 H, MCH 32.8 H, MCHC 33.8, RDW Std Deviation 57.9 H, RDW Coeff of Teo 16.1 H, Plt Count 157, MPV 9.4, Immature Gran % (Auto) 2.700 H, Neut % (Auto) 90.6 H, Lymph % (Auto) 1.1 L, [place] % (Auto) 5.0, Eos % (Auto) 0.0, Baso % (Auto) 0.6, Absolute Neuts (auto) 8.9 H, Absolute Lymphs (auto) 0.11 L, Nucleated RBC % 0, Sodium 138, Potassium 4.3, Chloride 104, Carbon Dioxide 26.0, Anion Gap 8, BUN 33 H, Creatinine 1.37 H, Estim Creat Clear Calc 35.09, Est GFR (MDRD) Af Amer 63, Est GFR (MDRD) Non-Af 52 L, BUN/Creatinine Ratio 24.1 H, Glucose 118 H, Calcium 9.6, Phosphorus 2.0 L, Magnesium 2.1, Procalcitonin 0.10 H 10/20/24 13:58: Urine Color Yellow, Urine Clarity Clear, Urine pH 7.0, Ur Specific [place] 1.010, Urine Protein 15 H, Urine Glucose (UA) Normal, Urine Ketones Negative, Urine Occult Blood 10 H, Urine Nitrite Negative, Urine Bilirubin Negative, Urine Urobilinogen 4 H, Ur Leukocyte Esterase 25 H, Urine RBC 0-5 SEEN, Urine WBC 0-5 SEEN, Ur Squamous Epith Cells 0-5 SEEN, Urine Bacteria 0 SEEN, Urine Mucus 0 SEEN 10/21/24 05:57: WBC 7.9, RBC 3.46 L, Hgb 11.2 L, Hct 33.9 L, MCV 98.0 H, MCH 32.4 H, MCHC 33.0, RDW Std Deviation 58.1 H, RDW Coeff of Teo 16.2 H, Plt Count 144 L, MPV 9.8, Immature Gran % (Auto) 3.400 H, Neut % (Auto) 87.6 H, Lymph % (Auto) 1.8 L, [place] % (Auto) 6.7, Eos % (Auto) 0.0, Baso % (Auto) 0.5, Absolute Neuts (auto) 6.9, Absolute Lymphs (auto) 0.14 L, Nucleated RBC % 0, PT 14.0, INR 1.1, APTT 23.3 L, Sodium 138, Potassium 4.1, Chloride 110 H, Carbon Dioxide 23.0, Anion Gap 5, BUN 25 H, Creatinine 0.92, Estim Creat Clear Calc 53.56, Est GFR (MDRD) Af Amer 100, Est GFR (MDRD) Non-Af 83, BUN/Creatinine Ratio 27.2 H, Glucose 95, Calcium 8.4 L, Total Bilirubin 0.70 10/21/24 05:57: Total Bilirubin 0.80, Direct Bilirubin 0.24, AST 19 10/21/24 05:57: AST 19, ALT 24 10/21/24 05:57: ALT 25, Alkaline Phosphatase 60 10/21/24 05:57: Alkaline Phosphatase 62, Total Protein 5.2 L 10/21/24 05:57: Total Protein 5.1 L, Albumin 2.4 L 10/21/24 05:57: Albumin 2.4 L, Globulin 2.8 10/21/24 05:57: Globulin 2.7, Albumin/Globulin Ratio 0.9 Rhythm Strip Rhythm Strip: Sinus Rhythm Rate: 61 Ectopy: None Imaging Radiology Impression Chest X-Ray 10/20/24 14:00 IMPRESSION: Indeterminate nodular opacity within the left midlung, cannot exclude an underlying pulmonary nodule, consider chest CT for further evaluation. Bibasilar ill-defined opacities, more pronounced on the left may be secondary to atelectasis and/or pneumonia. Cardiomegaly. Electronically Signed: Jimena Mcbride MD at 14:32 EST , Charges/Coding Visit Charges Inpatient E&M: 98703 Init Hosp L3
[2024-10-21] MEDS: Metoprolol Tartrate 25 MG Tablet PO ×2 (08:54→21:39)
[2024-10-21] MEDS: Iron Polysaccharide Complex 150 MG CAPSULE PO (08:55)
[2024-10-21] MEDS: Ipratropium Bromide 0.06% NASAL SPRAY 2 SPRAY NASAL (08:55)
[2024-10-21] MEDS: NYSTATIN 500,000 UNIT/5 ML UDC 500000 UNIT PO ×4 (08:55→21:43)
[2024-10-21] MEDS: Menthol/Lanolin/Calamine/Znox 113 GM Tube 1 APPLIC TOPICAL ×2 (09:04→18:10)
[2024-10-21] MEDS: 0.9% Saline Lock 10 ML Syringe IV (09:10)
[2024-10-21] MEDS: Pantoprazole Sodium 40 MG in 0.9% Normal Saline (100mL MB+) 100 ML 330 MG IV ×2 (09:10→21:41)
--- NOTE | 2024-10-21 10:39 | PRE.ANES_ITS ---
ASA Classification* ASA Classification ASA Classification: 3 Assessment & Plan Anesthesia* Anesthesia Assessment Anesthesia Assessment: Discussed sedation and/or anesthesia options, risks, benefits, and alternatives with patient/parents/legal guardian/POA. Questions invited. The patient/parents/legal guardian/POA seems to understand and agrees to proceed with anesthesia plan. Reviewed the physical assessment, medical history, allergy history and patient home medications list prior to surgery/procedure/anesthetic and documented any changes. Performed airway and anesthesia risk assessments. Anesthesia Type Anesthesia Type: MAC Anesthesia Focused Assessment* Temperature: 97.5 F Pulse Rate: 66 Blood Pressure: 144/64 Respiratory Rate: 16 Pulse Ox: 98 Airway Assessment Mouth opens: >3 cm Mallampati Score: II Focused Labs Anesthesia Preop lab: CBC WBC 7.9 K/mm3 (4.4-11.0) 10/21/24 05:57 RBC 3.46 M/mm3 (4.6-6.2) L 10/21/24 05:57 Hgb 11.2 g/dL (13.0-16.5) L 10/21/24 05:57 Hct 33.9 % (40-54) L 10/21/24 05:57 Plt Count 144 K/mm3 (150-450) L 10/21/24 05:57 CHEMISTRY Potassium 4.1 mmol/L (3.5-5.1) 10/21/24 05:57 Sodium 138 mmol/L (136-145) 10/21/24 05:57 Magnesium 2.1 mg/dL (1.6-2.6) 10/20/24 13:45 Phosphorus 2.0 mg/dL (2.5-4.9) L 10/20/24 13:45 BUN 25 mg/dL (7-18) H 10/21/24 05:57 Creatinine 0.92 mg/dL (0.70-1.30) 10/21/24 05:57 Glucose 95 mg/dL (74-106) 10/21/24 05:57 COAG PT 14.0 SECONDS (11.7-14.9) 10/21/24 05:57 Pre-Assessment Diagnosis/Proposed Procedure Planned Operative Procedure(s): EGD,PEG Anesthesia History 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 When Was Last Pacemaker Check QUESTION #4 FULL TEXT: You/Your Family Experience fever (hyperthermia) with Anesthesia Last Oral Intake Last Oral intake: Last Oral Intake NPO since 00:00 10/21/24 09:16 Meds taken in AM with sips of Yes 10/21/24 09:16 water? Meds patient instructed to Lopressor 10/21/24 09:16 take am of surgery Methadone PONV PONV - business development analyst: PONV - business development analyst Female HX of Motion Sickness HX of N/V After Surgery Non-Smoker Duration of Surgery greater than 60 minutes Number of Risk Factors PONV Score Height & Weight Height & Weight: Anesthesia: Height & Weight Height 5 ft 9 in 10/21/24 09:16 Weight: 65.7 kg 10/21/24 09:16 Body Mass Index (BMI) 21.4 10/21/24 09:16 Respiratory Assessment Respiratory Assessment - business development analyst: Respiratory Tract Infection Hx - business development analyst Hx Respiratory Tract Infection No 10/21/24 09:16 STOP Sleep Apnea STOP Sleep Apnea - business development analyst: STOP Sleep Apnea - business development analyst Hx Hypertension Yes: CONTROLLED WITH MED 10/20/24 18:54 Hx Sleep Apnea No 10/20/24 18:54 CPAP BIPAP Do you snore loudly (louder No 10/20/24 18:54 than talking or can be heard Do you often feel tired/ No 10/20/24 18:54 fatigued/ sleepy during daytime? Has anyone observed you stop No 10/20/24 18:54 breathing during sleep? STOP Results Negative 10/20/24 18:54 QUESTION #5 FULL TEXT : Do you snore loudly (louder than talking or can be heard through closed doors)? 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 confused, unrespo /Reproduction History /Reproductive History - business development analyst: /Reproductive Hx- business development analyst Hx Now No 10/21/24 09:16 Gestational Age (in weeks): EDC: Hx Hx Para Hx Section SAB No 10/21/24 09:16 Active Medications Active Medications: Current Medications Generic Name Dose Route Start Last Admin Trade Name Freq PRN Reason Stop Dose Admin Acetaminophen 650 mg 10/20/24 19:24 Acetaminophen 325 Mg Tablet PO Q4H PRN PRN Fever, pain 1-09/04 Acyclovir 200 mg 10/20/24 22:00 10/20/24 20:23 Acyclovir 200 Mg Capsule PO 200 mg BID VICKY Administration Al Hydroxide/Mg Hydroxide 30 ml 10/20/24 19:24 Mag Hydrox/Al Hydrox/Simeth 30 Ml Udc PO Q6H PRN PRN Gastric Burning Albuterol Sulfate 2.5 mg 10/20/24 19:24 Albuterol 2.5 Mg/3 Ml Vial.Neb. INHALATION Q2H PRN PRN Dyspnea, wheezing Calamine/Phenol 1 applic 10/20/24 22:00 10/21/24 09:04 Menthol/Lanolin/Calamine/Znox 113 Gm Tube TOPICAL 1 applic 4X/DAY VICKY Administration Protocol Dexamethasone 4 mg 10/20/24 22:00 10/21/24 04:43 Dexamethasone 4 Mg Tablet PO Not Given Q8 VICKY Duloxetine HCl 60 mg 10/20/24 22:00 10/20/24 20:21 Duloxetine Hcl 60 Mg Capsule PO 60 mg QHS VICKY Administration Gabapentin 300 mg 10/20/24 22:00 10/21/24 04:43 Gabapentin 300 Mg Capsule PO Not Given TID VICKY Guaifenesin 20 ml 10/20/24 19:24 Guaifenesin 10 Ml Udc (200mg/10ml) PO Q4H PRN PRN COUGH Hydralazine HCl 10 mg 10/20/24 19:24 Hydralazine 20 Mg/Ml Vial IV Q4H PRN PRN SBP > 160 Protocol Sodium Chloride 500 mls @ 15 mls/hr 10/20/24 18:54 IV .[id number] PRN Saline Flush Sodium Chloride 500 mls @ 15 mls/hr 10/20/24 18:54 IV .[id number] PRN Additional IVPB Infusion Pantoprazole Sodium 40 mg/ 110 mls @ 330 mls/hr 10/20/24 19:24 10/21/24 09:30 Sodium Chloride IV Infused Q12 VICKY Infusion Ipratropium Vandiver 2 spray 10/20/24 22:00 10/21/24 08:55 Ipratropium Vandiver 0.06% Nasal [place] NASAL 2 spray BID IVCKY Administration Lidocaine/Diphenhydr/Alum/Mg/Simeth 10 ml 10/20/24 19:24 Bmx Liquid 180 Ml PO Q3H PRN PRN sore throat/pain Melatonin 3 mg 10/20/24 19:24 Melatonin 3 Mg Tablet PO QHS PRN PRN INSOMNIA Methadone HCl 5 mg 10/20/24 19:24 10/21/24 08:59 Methadone 5 Mg Tablet PO 5 mg Q12H VICKY Administration Metoprolol Tartrate 25 mg 10/20/24 22:00 10/21/24 08:54 Metoprolol Tartrate 25 Mg Tablet PO 25 mg BID VICKY Administration Protocol Nystatin 500,000 unit 10/20/24 22:00 10/21/24 08:55 Nystatin 500,000 Unit/5 Ml Udc PO 500,000 unit 4X/DAY VICKY Administration Ondansetron HCl 4 mg 10/20/24 19:24 Ondansetron 4 Mg/2 Ml Vial IV Q8H PRN PRN NAUSEA/VOMITING Polysaccharide Iron Complex 150 mg 10/21/24 10:00 10/21/24 08:55 Iron Polysaccharide Complex 150 Mg Capsule PO 150 mg DAILY VICKY Administration Prochlorperazine Edisylate 5 mg 10/20/24 19:24 Prochlorperazine 10 Mg/2 Ml Vial IV Q4H PRN PRN Breakthrough nausea/vomiting Senna/Docusate Sodium 2 tablet 10/20/24 19:24 Senna/Docusate Sodium 1 Tablet PO BID PRN PRN Constipation Sodium Chloride 10 - 40 ml 10/20/24 18:54 10/21/24 09:10 0.9% Saline Lock 10 Ml Syringe IV 10 ml UD PRN Administration SALINE FLUSH Tamsulosin HCl 0.4 mg 10/20/24 22:00 10/20/24 20:22 Tamsulosin Hcl 0.4 Mg Capsule PO 0.4 mg QHS VICKY Administration PFSH Medical History Chronic pain Kidney disease Kidney stones GERD (gastroesophageal reflux disease) GI bleed Non-smoker Myocardial infarct Loss of hearing Wears glasses Wears partial dentures History of steroid therapy Ambulates with cane Prostate disease History of renal disease Low iron DVT (deep venous thrombosis) Easy bruising Back pain Syncope History of hiatal hernia History of GI bleed Dietary restriction Gastric reflux Former smoker Lung cancer Leg cramps History of stress test Cardiology follow-up encounter Hypertension History of edema History of heart attack Home Medications ?Medication ?Instructions ?Recorded ?Last Taken ?Type acyclovir 200 mg capsule 200 mg PO BID is on a large dose 09/25/24 Unknown History of predisone alpha lipoic acid 200 mg capsule 200 mg PO DAILY supplement 09/25/24 Unknown History bicalutamide 50 mg tablet 50 mg PO QHS antihormone therapry 09/25/24 Unknown History ipratropium bromide 42 mcg (0.06 2 spray intranasal BID congestion 09/25/24 Unknown History %) nasal spray leuprolide 3.75 mg intramuscular 3.75 mg IM QMONTH anti hormone for 09/25/24 09/09/24 History syringe kit (Lupron Depot) cancer methadone 5 mg tablet 5 mg PO Q12H pain 09/25/24 Unknown History metoprolol tartrate 25 mg tablet 25 mg PO BID hr 09/25/24 Unknown History nystatin 100,000 unit/mL oral 5 ml PO MOWEFR thrush 09/25/24 Unknown History suspension pantoprazole 40 mg tablet,delayed 40 mg PO DAILY gerd 09/25/24 Unknown History release polysaccharide iron complex 150 mg 150 mg PO DAILY iron 09/25/24 Unknown History iron capsule (Ferrex) sulfamethoxazole 800 1 tab PO MOWEFR infection 09/25/24 Unknown History mg-trimethoprim 160 mg tablet tamsulosin 0.4 mg capsule 0.4 mg PO QHS enlarged prostate 09/25/24 Unknown History vit [id number] factor-folic 1 tab PO DAILY supplement 09/25/24 Unknown History acid cmb#2 500 mcg-20 mg-800 mcg tablet (Intrinsi [id number]) dexamethasone 4 mg tablet 4 mg PO Q8 steriod 10/20/24 Unknown History duloxetine 60 mg capsule,delayed 60 mg PO QHS pain 10/20/24 Unknown History release (Cymbalta) Allergy/AdvReac Type Severity Reaction Status Date / Time [id number] Reductase AdvReac Intermediate Other Verified 10/20/24 12:36 Inhibitor Family History Mother Heart disease Hypertension Heart failure Father Heart disease Hypertension CAD (coronary artery disease) Myocardial infarction Diabetes Surgical History History of cardiac catheterization History of esophagogastroduodenoscopy (EGD) Hx of colonoscopy Hx of parotidectomy History of coronary artery stent placement Hx of appendectomy Hx of heart bypass surgery Social History household members: none Smoking Status: Former smoker alcohol intake: never substance use type: does not use Review of Systems (Anesthesia) ROS Narrative System reviewed and no additional complaints, except as documented.
--- NOTE | 2024-10-21 11:47 | SUR.PREOP ---
Per Dr. Toledo, patient not having PEG tube placed today due to large hiatal hernia.
[2024-10-21] MEDS: Acyclovir 200 MG Capsule PO ×2 (12:22→21:41)
--- NOTE | 2024-10-21 12:30 | CASEMGMT ---
RN CM Face to Face with patient for initial transition planning/care coordination assessment. RN CM introduced self and role at [facility]. Patient lying in bed, alert and oriented, daughter at bedside. Patient willing to participate in assessment and is able to answer all questions appropriately. Care providers, pharmacy, and demographics verified. Strata: 1 PCP: [facility] Specialists: Pearl, oncologist; Tamiko, radiology oncologist; Neli, ENT; Siria Ramirez cardiologsit; Preferred Pharmacy: [facility] Insurance: [employer] [facility] Prescription Benefit: yes Living Will/HPOA: yes, daughter Joi Ch LNOK: daughter, son Living Arrangements: Patient lives alone in single story home with 6 steps to enter. Patient was independent at home but has been needing more assistance with ADLs. Son lives next door Transportation: daughter DME/HHC: Patient has shower chair, raised toilet, cane, grab bars, walker at [facility]. No previous HHC. Patient has been to [email or web address] in the past. Patient is active with [facility]. Patient wishes to discharge home, therapy pending, will monitor for HHC vs SNF. Daughter updated CM that patient may need discharged for J-tug placement. Daughter and patient state they have no further needs or concerns at this time. CM to follow for discharge planning needs that may arise. Disposition Plan: TBD transfer vs HHC/SNF at discharge. Maria Teresa GARCIA, RN, CM
--- NOTE | 2024-10-21 13:55 | CASEMGMT ---
Insurance review for hospitals In-network with[facility] insurance if transfer is recommended is as follows: [facility], [place], [facility], [place], [facility], [facility], [facility], [facility], [place], [facility]), and . Anna Fowler, Discharge Planning Asst.
--- NOTE | 2024-10-21 13:56 | CASEMGMT ---
Discharge Planning A list of?HH and SNF providers including quality and resource use data and consistent with the patient's preferred geographic region, medical needs, and insurance network was created in [employer] Guide.? This list was provided to the RN EMILE. Anna Fowler, Discharge Planning Asst.
[2024-10-21] MEDS: dexAMETHasone 4 MG Tablet PO ×2 (14:44→21:41)
[2024-10-21] MEDS: Senna/Docusate Sodium 1 Tablet 2 TABLET PO (15:51)
--- NOTE | 2024-10-21 15:53 | CHAPLAIN ---
Type of Pastoral Visit _x__ Initial Visit ___ Follow-up Visit ___ On-call Visit ___ General Patient Visit ___ Spiritual Assessment ___ Family Conference ___ Bereavement ___ Rapid Response ___ Code Blue ___ Other (describe below) Pastoral Care Referral From _x__ Patient ___ Family ___ Nurse ___ Physician ___ Finance Executive ___ Data Collection Technician ___ Other (describe below) Sacrament/Intervention _x__ Active listening ___ Anointing ___ Yazidism ___ Bereavement ___ Communion _x__ Emerald exploration ___ ___ Life review _x__ Prayer ___ Reconciliation ___ Sacrament of Sick _x__ Supportive presence ___ Wedding ___ Other (describe below) Pastoral Comments daughter and patient are in the room together; daughter is needing help with the TV remote and this begins the visit; daughter gives some explanation of what is happening for the pt in the hospital; pt is [place] but does participate in the conversation; pt is asked questions to state his coping of continual garza with cancer and concerning his needs; pt speaks of wanting help to relieve his pain and the disease while also acknowledging that he is longing for a reunion with his who 21 years ago and to see [place]; pt is able to express his emerald in [place] and how that helps him face his future; time given to listen and to reassure pt of good care and interest in his needs; prayer is welcomed; daughter expresses gratitude for he visit
[2024-10-21] MEDS: Gabapentin 300 MG Capsule PO (21:39)
[2024-10-21] MEDS: DULoxetine Hcl 60 MG Capsule PO (21:41)
[2024-10-21] MEDS: Tamsulosin HCl 0.4 MG Capsule PO (21:41)
[2024-10-22 01:15] VITALS: BP 135/82; PULSE 65; RESP 18; TEMP 35.8; O2SAT 97
--- NOTE | 2024-11-06 15:13 | DS.PCM_ITS ---
Providers Date of Admission: 10/20/24 Date of Discharge: 10/21/24 Primary Care Physician: Dr. Korey Blanco MD Consultations 10/20/24 19:24 Consult: General Surgery Routine Consulting Provider: Ermelinda Toledo Reason for Consult: PEG tube placement EMERGENT Consult: No MD Notified: Yes Date Notified: 10/20/24 Time Notified: 18:42 Method of Notification: Text Reason For Visit: ADULT FTT Diagnosis Discharge Diagnosis (1) Adult failure to thrive: Status: Acute Code(s): R62.7 - Adult failure to thrive (2) Malnutrition: Status: Acute Code(s): E46 - Unspecified protein-calorie malnutrition Plan Acute on chronic debility secondary to underlying parotid cancer with significant metastatic disease and treatment including palliative radiation #2 clinical dehydration #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 intake meeting less than 50% of estimated nutritional needs x 1 week Chronic kidney disease was ruled out Medications at Discharge Home Medications acyclovir 200 mg capsule 200 mg PO BID is on a large dose of predisone 09/25/24 alpha lipoic acid 200 mg capsule 200 mg PO DAILY supplement 09/25/24 bicalutamide 50 mg tablet 50 mg PO QHS antihormone therapry 09/25/24 ipratropium bromide 42 mcg (0.06 %) nasal spray 2 spray intranasal BID congestion 09/25/24 leuprolide 3.75 mg intramuscular syringe kit (Lupron Depot) 3.75 mg IM QMONTH anti hormone for cancer 09/25/24 methadone 5 mg tablet 5 mg PO Q12H pain 09/25/24 metoprolol tartrate 25 mg tablet 25 mg PO BID hr 09/25/24 nystatin 100,000 unit/mL oral suspension 5 ml PO MOWEFR thrush 09/25/24 pantoprazole 40 mg tablet,delayed release 40 mg PO DAILY gerd 09/25/24 polysaccharide iron complex 150 mg iron capsule (Ferrex) 150 mg PO DAILY iron 09/25/24 sulfamethoxazole 800 mg-trimethoprim 160 mg tablet 1 tab PO MOWEFR infection 09/25/24 tamsulosin 0.4 mg capsule 0.4 mg PO QHS enlarged prostate 09/25/24 vit [id number] factor-folic acid cmb#2 500 mcg-20 mg-800 mcg tablet (Intrinsi [id number]) 1 tab PO DAILY supplement 09/25/24 dexamethasone 4 mg tablet 4 mg PO Q8 steriod 10/20/24 duloxetine 60 mg capsule,delayed release (Cymbalta) 60 mg PO QHS pain 10/20/24 Hospital Course Operations None Procedures None Summary of Care Provided Minutes Spent on Discharge: 31 Hospital Course: This 84-year-old white male with a history of parotid cancer with metastatic disease was seen in the emergency room at [facility] with complaints of increasing weakness debility malaise and poor oral intake. Patient had just finished radiation treatment. Obtained showed normal white blood cell count, hemoglobin was normal, BUN was elevated at 33 and creatinine was elevated at 1.37. Chest x-ray showed intermediate nodule opacity within the left midlung field, there were also bibasilar ill-defined opacities more pronounced on the left-this could indicate atelectasis and/or pneumonia. Patient was admitted to PCU, he was seen in consultation by general surgery for placement of a PEG tube for nutritional support, patient was given IV fluids. Unfortunately, surgery reviewed a CT of the chest done at clinic [facility] and it showed the entire stomach is in the hiatal hernia and only a small amount of bile is in the abdomen, it was felt the patient would not be amendable to a PEG tube placement. General surgery recommended the patient be sent to a facility for placement of an IR guided J-tube. I contacted [facility] and discussed this with the patient and his daughter, they were amendable to transfer to [facility] for further care. On 10/21/2024, patient was seen and examined: On examination he appeared cachectic and frail, patient was in no distress. Vital signs as documented. Skin warm and dry and without overt rashes. Neck without JVD, neck was supple, trachea midline, thyroid was normal. Lungs clear bilaterally, normal air movement was noted. Heart exam notable for regular rhythm, normal sounds and absence of murmurs, rubs or gallops. Abdomen unremarkable and without evidence of organomegaly, masses, or abdominal aortic enlargement. Bowel sounds are present, abdomen is not distended. Extremities nonedematous, no cyanosis was noted, no clubbing was noted. Neuro: Cranial nerves II through XII are grossly intact, no focal motor deficits were noted, sensation to light touch and pinprick intact, motor exam 5/5 throughout. Psych: Patient is alert and oriented x3, he does not appear anxious or depressed, he does not appear agitated. Patient was transferred to [facility] on 10/21/2024 in [facility] for further treatment in stable condition. Weight / BMI Weight Weight: 65.7 kg Body Mass Index (BMI) 21.4 ABG / Lab / Microbiology Data 10/21/24 05:57 10/21/24 05:57 D/C Instructions DC O2, CPAP, BIPAP Needs Additional Home O2 Discharge instructions: No DC home with Oxygen: No Meaningful Use Info Meaningful Use Meaningful Use Diagnoses (Choose all that apply): None applicable Ischemic Stroke Statin Dosing Therapy Reference: STATIN DOSE THERAPY REFERENCE: * Patients > 75 years receive moderate or high dose statin therapy. * Patients 75 years or YOUNGER should receive HIGH intensity statin dose unless contraindicated. You will be required to document reason for non-treatment if statin daily dose does not meet guidelines. HIGH DOSE STATIN THERAPY DAILY Atorvastatin > than or = to 40 mg Rosuvastatin > than or = to 20 mg Amlodipine + Atorvastatin > than or = to 2.5/40 mg Ezetimibe + Simvastatin 10/80 mg Simvastatin 80mg Discharge Plan Admission Admit Date/Time: 10/20/24 17:58 Attending Provider: Arik Quarles Primary Care Provider: Korey Blanco Consulting Providers: Ermelinda Toledo; Delaney Ramos Discharge Orders/Prescriptions Prescriptions: No Action ipratropium bromide 42 mcg (0.06 %) spray,non-aerosol 2 spray INTRANASAL BID nystatin 100,000 unit/mL suspension 5 ml PO MOWEFR tamsulosin 0.4 mg capsule 0.4 mg PO QHS methadone 5 mg tablet 5 mg PO Q12H alpha lipoic acid 200 mg capsule 200 mg PO DAILY pantoprazole 40 mg tablet,delayed release (DR/EC) 40 mg PO DAILY metoprolol tartrate 25 mg tablet 25 mg PO BID bicalutamide 50 mg tablet 50 mg PO QHS sulfamethoxazole-trimethoprim 800-160 mg tablet 1 tab PO MOWEFR acyclovir 200 mg capsule 200 mg PO BID Intrinsi [id number] 500-20-800 mcg-mg-mcg tablet 1 tab PO DAILY polysaccharide iron complex [Ferrex 150] 150 mg iron capsule 150 mg PO DAILY Lupron Depot 3.75 mg syringe kit 3.75 mg IM QMONTH Patient Comments: due on dexamethasone 4 mg tablet 4 mg PO Q8 duloxetine [Cymbalta] 60 mg capsule,delayed release(DR/EC) 60 mg PO QHS Referrals / Follow Up: Korey Blanco MD [Primary Care Provider] - Disposition Disposition (needs filled in before D/C Order can be placed): Acute Care Hospital Charges/Coding Visit Charges Inpatient E&M: 02880 Disch Hosp >30min
== END 2024-10-22 02:17 | disposition short-term general hospital (02) | DRG 641 ==
LOC: ED 18:07 → PCU 18:34
PROVIDERS: Anesthesiology; Admitting Provider Family Medicine; Emergency Provider Emergency Medicine; PCP Family Medicine; Referring Provider Emergency Medicine; Visit Provider Internal Medicine
DX: R62.7 Adult failure to thrive (principal); C78.01 Secondary malignant neoplasm of right lung; C78.02 Secondary malignant neoplasm of left lung; C79.51 Secondary malignant neoplasm of bone; C07 Malignant neoplasm of parotid gland; N18.30 Chronic kidney disease, stage 3 unspecified; E43 Unspecified severe protein-calorie malnutrition; E61.1 Iron deficiency; E86.0 Dehydration; I12.9 Hypertensive chronic kidney disease with stage 1 through stage 4 chronic kidney disease, or unspecified chronic kidney disease; K21.9 Gastro-esophageal reflux disease without esophagitis; I25.10 Atherosclerotic heart disease of native coronary artery without angina pectoris; I25.2 Old myocardial infarction; Z95.5 Presence of coronary angioplasty implant and graft; Z92.3 Personal history of irradiation; Z87.891 Personal history of nicotine dependence; Z95.1 Presence of aortocoronary bypass graft; Z79.899 Other long term (current) drug therapy; Z90.49 Acquired absence of other specified parts of digestive tract; G89.29 Other chronic pain; N40.0 Benign prostatic hyperplasia without lower urinary tract symptoms; Z68.21 Body mass index [BMI] 21.0-21.9, adult; R13.10 Dysphagia, unspecified; R29.810 Facial weakness; K44.9 Diaphragmatic hernia without obstruction or gangrene; Z86.718 Personal history of other venous thrombosis and embolism
CPT/HCPCS: 36415; 71045; 80048; 80053; 80076; 81001; 83735; 84100; 84145; 85025; 85610; 85730; 92610; 93005; 94668; 96361; 96365; 96366; 97802; 99221; 99284; A4216; G0378